=== PATIENT | female | born 1955 | race Caucasian/White ===

== ENCOUNTER 2017-12-27 21:14 | Emergency (ER) | payer OTHER ==
[~2017-12-27] VITALS: Ht 170.2 cm; Wt 94.8 kg
[2017-12-27] MEDS ORDERED: SYNTHROID100 MCG PO (21:32)
[2017-12-27] MEDS ORDERED: PRILOSEC20 MG PO (21:32)
[2017-12-27 22:06] LABS: BASOPHIL (%) 0.3 % (0-1); EOSINOPHIL (%) 0.5 % (0-5); EOSINOPHIL COUNT 0.1 K/uL (0-0.3); HEMATOCRIT 42.2 % (36.0-46.0); HEMOGLOBIN 14.3 G/DL (11.9-15.5); IMMATURE GRANULOCYTE (%) 0.4 % (0.0-0.7); LYMPHOCYTE (%) 22.3 % (15-42); LYMPHOCYTE COUNT 2.8 K/uL (1.0-2.8); MCH 27.9 PG (29.0-34.0); MCHC 33.9 G/DL (30.0-36.0); MCV 82.4 FL (83-99); MONOCYTE (%) 6.8 % (3-12); MONOCYTE COUNT 0.9 K/uL (0-0.8); NEUTROPHIL (%) 69.7 % (45-76); NEUTROPHIL COUNT 8.7 K/uL (1.8-6.4); PLATELET COUNT 215 K/uL (156-360); RBC DIS.WIDTH-CV 14.1 % (11.8-14.6); RBC DIS.WIDTH-SD 41.7 % (39-53); RED BLOOD COUNT 5.12 M/uL (3.80-5.20); WHITE BLOOD COUNT 12.4 K/uL (4.1-10.2)
[2017-12-27 22:15] LABS: CHLORIDE 106 mEq/L (99-109); POTASSIUM 3.6 mEq/L (3.7-5.4); SODIUM 140 mEq/L (136-147)
[2017-12-27 22:16] LABS: GLUCOSE 151 mg/dL (70-99)
[2017-12-27 22:20] LABS: GFR ESTIMATE (CALCULATED) > 59 mL/min/
[2017-12-27 22:21] LABS: UREA NITROGEN (BUN) 23 mg/dL (9-23)
[2017-12-27 23:23] LABS: APPEARANCE CLEAR ((CLEAR)); BILIRUBIN NEGATIVE; BLOOD MODERATE; COLOR YELLOW ((YELLOW)); GLUCOSE (STRIP) NEGATIVE; KETONES NEGATIVE; LEUKOCYTES NEGATIVE; NITRITE POSITIVE; PROTEIN (STRIP) NEGATIVE; SPECIFIC GRAVITY 1.023 (1.000-1.030); UROBILINOGEN 0.2 MG/DL (0.2-1.0)
[2017-12-27 23:26] LABS: BACTERIA NONE SEEN /HPF; EPITHELIAL CELLS RARE /HPF; MUCUS TRACE /LPF; RED BLOOD CELLS 0-5 /HPF (0-5); UCUL ADDED? YES
[2017-12-27] MEDS ORDERED: PERCOCET 5/31 TABLET PO (23:37)
[2017-12-27] MEDS ORDERED: MOTRIN600 MG PO (23:37)
[2017-12-27] MEDS ORDERED: ROBAXIN750 MG PO (23:37)
[2017-12-28 01:54] VITALS: BP 165/85
== END 2017-12-28 01:55 | disposition home or self-care (01) ==
LOC: EME 21:14 → EDBD 21:14 → EME 12-28 01:55
PROVIDERS: Emergency Medicine
DX: M54.5 Low back pain (principal); Z85.05 Personal history of malignant neoplasm of liver
CPT/HCPCS: 72131; 80048; 81003; 85025; 87077; 87086; 87186; 99281; 99284; J1100; J1885; J2270